=== PATIENT | male | born 1970 | race Hispanic/Latino ===

== ENCOUNTER 2018-02-16 05:55 | Day surgery (SDC) | payer OTHER ==
[2018-02-13 09:22] VITALS: BMI 41.7
[2018-02-16] MEDS ORDERED: Bacitracin Zinc Ointment 30 gm TUBE ONE (06:14)
[2018-02-16] MEDS ORDERED: EPINEPHrine 1 MG/ML AMP ONE (06:14)
[2018-02-16] MEDS ORDERED: Bupivacaine/Epinephrine 0.25% 30 ML VIAL ONE (06:14)
[2018-02-16] MEDS ORDERED: Ciprofloxacin 0.2% Otic ONE (06:14)
[2018-02-16] MEDS ORDERED: Lidocaine 1% w/Epinephrine 1:200K 30 ML VIAL ONE (06:14)
[2018-02-16] MEDS ORDERED: Sodium Chloride 0.9% 10 ML ONE (06:15)
[2018-02-16] MEDS ORDERED: Fentanyl 100 MCG/2 ML VIAL ONE (06:39)
[2018-02-16] MEDS ORDERED: CEFAZOLIN/Water 2 GM/20 ML SYRINGE ONE (07:02)
[2018-02-16] MEDS ORDERED: Midazolam HCl 2 mg/2 ml Vial ONE (07:02)
[2018-02-16] MEDS ORDERED: HYDROcodone/Acetaminophen 5/325 mg Tablet ONE (11:25)
[2018-02-16] MEDS ORDERED: diphenhydrAMINE 50 MG/ML VIAL ONE (16:17)
[2018-02-16] MEDS ORDERED: Ondansetron HCl/PF 4 MG/2 ML Vial ONE (16:17)
[2018-02-16] MEDS ORDERED: Dexamethasone 20 MG/5 ML VIAL ONE (16:17)
[2018-02-16] MEDS ORDERED: Ketorolac Tromethamine 30 MG/ML VIAL ONE (16:17)
[2018-02-16] MEDS ORDERED: PROPOFOL 200 MG/20 ML VIAL ONE (16:17)
[2018-02-16] MEDS ORDERED: Succinylcholine Chloride 20 MG/ML 10 ml SYRINGE FS ONE (16:17)
[2018-02-16] MEDS ORDERED: Lidocaine 1% PF 5 ML VIAL ONE (16:17)
--- NOTE | 2018-02-16 21:13 | EKG ---
Test Reason : PREOP Blood Pressure : / mmHG Vent. Rate : 066 BPM Atrial Rate : 066 BPM P-R Int : 168 ms QRS Dur : 092 ms QT Int : 388 ms P-R-T Axes : 056 002 030 degrees QTc Int : 406 ms Normal sinus rhythm Normal ECG No previous ECGs available Confirmed by YOVANA ARGUETA ([id number]) on 02/16/2018 9:13:16 PM Referred By: VIRAJ Confirmed By:YOVANA ARGUETA
--- NOTE | 2018-02-17 13:47 | OP ---
DATE OF PROCEDURE: 02/16/2018 PREOPERATIVE DIAGNOSIS: Right-sided cholesteatoma. POSTOPERATIVE DIAGNOSIS: Right-sided cholesteatoma. PROCEDURES: 1. Right tympanoplasty mastoidectomy without ossicular chain reconstruction. 2. Mastoid obliteration with bone dust. 3. Microscopic surgical procedure. 4. Facial nerve monitoring for 2 hours. SURGEON: Heath Godoy M.D. ANESTHESIA: General endotracheal. COMPLICATIONS: None. ESTIMATED BLOOD LOSS: 5 mL. SPECIMENS: None. ASSISTANTS: None. DISPOSITION: Stable to recovery room. SUMMARY: Right tympanoplasty mastoidectomy without reconstruction staged with Silastic removed the i ncus head of the malleus, left stapes superstructure and long process of the malleus. Cholesteatoma was throughout the entirety of the attic up to the eustachian tube region and then toward the sinodur al angle. Reconstructed by placing Silastic plastic in the middle ear space x1 piece packed with Gel foam, compressed and packed the attic densely with bone dust and reconstructed the canal wall defect and scutal defect that is with cartilage and fascia. The rest of the middle ear space was in very go od condition. Chorda tympani nerve intact and expect to do well. Of note, we did place the facial n erve electrodes in the contralateral side originally. We would like to do a staged reconstruction an d surveillance for cholesteatoma. However, if he gets good hearing with the staging process, could c onsider MRI follow up. PROCEDURE IN DETAIL: 1. Right tympanoplasty mastoidectomy without ossicular chain reconstruction: After informed consent was obtained, the patient taken to the operating room and placed in the supine position. General en dotracheal anesthetic was administered. Table was rotated 180 degrees. Right ear was injected posta uricular and transcanal 0.25% Marcaine with epinephrine. With the right ear injected then draped and prepped in the usual sterile fashion. Microscope was brought into view and elevated the tympanomeat al flap from 12-6, but did not enter middle ear space. Postauricular incision was made and carried d own and ear reflected forward. The case was very difficult because of the patient's significant obes ity and very short neck stature. Pericranial flap elevated. Fascia and cartilage was harvested and r etractor was placed. Basic cortical mastoid performed and opened the facial recess. Malleus and inc us were removed as described above, leaving long process of the malleus and the stapes superstructure intact. Reconstructed as described above. 2. Mastoid obliteration: With the cartilage placed on the scutum and the reconstruction at that poi nt performed bone dust, which had been harvested during the cortical mastoidectomy to ensure it did n ot have any traces of cholesteatoma, was then packed generously into the attic and compressed onto th e defect in the scutum. 3. Microscopic surgical procedure: Throughout the entire operation microscope was an integral part of procedure used from 2 power to 14 power and high illumination. 4. Facial nerve monitoring for 2 hours: Beginning the operation, EMG electrodes placed in orbicular is oculi and orbicularis nanci, attached to the nerve integrity monitoring system, set at a response t hreshold of 100 microvolts and stimulus 0.8. At no time was there abnormal stimulus and the facial n erve was identified throughout the surgery in the vertical segment of mastoid as well as the middle e ar space. It was intact and unmolested and remained in the bony fallopian canal. The chorda tympani nerve was harvested electively. Postauricular wound was closed with deep 2-0 and 3-0 and Dermabond for the skin. Gelfoam was used to pack the middle ear as well as lateral to the graft and bacitracin ointment was placed lateral to this and a cotton ball applied. Dermabond was placed on the skin with this. The patient tolerat ed the procedure well and was turned over to Anesthesia in a stable condition.
== END 2018-02-16 12:25 | disposition home or self-care (01) ==
LOC: SDC 05:55
PROVIDERS: ATTEND Otolaryngology Otology & Neurotology
PROC: 095 Ear, Nose, Sinus, Destruction (ICD-10-PCS; principal; 2018-02-16)
PROC: 0NR50JZ Replacement of Right Temporal Bone with Synthetic Substitute, Open Approach (ICD-10-PCS; principal; 2018-02-16)
DX: H71.91 Unspecified cholesteatoma, right ear; Z87.891 Personal history of nicotine dependence; Z99.89 Dependence on other enabling machines and devices; G47.30 Sleep apnea, unspecified; E34.9 Endocrine disorder, unspecified
CPT/HCPCS: 93005; 93010; A4216; J0171; J1100; J1200; J1885; J2001; J2250; J2405; J2704; J3010; J3490

== ENCOUNTER 2018-06-10 09:45 | Emergency (ER) | payer OTHER ==
[2018-06-10 10:12] LABS: Bilirubin Negative (Negative); Blood, Urine Negative (Negative); Clarity CLEAR (Clear); Glucose, Urine (Dipstick) 250 mg/dL (Negative); Leukocyte Negative (Negative); Nitrite Negative (Negative); Protein, Urine (Dipstick) Negative (Neg-Trace); Specific Gravity, Urine 1.016 (1.002-1.036); Urobilinogen 0.2 mg/dL (0.2-1.0)
[2018-06-10] MEDS ORDERED: Ondansetron HCl/PF 4 MG/2 ML Vial ONE (10:36)
[2018-06-10] MEDS ORDERED: Ketorolac Tromethamine 30 MG/ML VIAL ONE (10:36)
[2018-06-10 10:54] LABS: #Basophils 0.1 thou/uL (0.0-0.2); #Eosinphils 0.1 thou/uL (0.0-0.7); #Lymphocytes 2.3 thou/uL (1.20-3.40); #Monocytes 0.4 thou/uL (0.11-0.59); #Neutrophils 3.9 thou/uL (1.40-6.50); %Basophils 0.8 % (0.0-1.0); %Eosinophils 2.1 % (0.0-10.0); %Lymphocytes 34.2 % (21.0-51.0); %Monocytes 5.6 % (0.0-10.0); %Neutrophils 57.3 % (42.0-75.0); Hemoglobin 13.9 g/dL (14.0-18.0); Mean Corpuscular HGB CONC 35.3 g/dL (32.0-36.0); Mean Corpuscular Hemoglobin 30.3 pg (27.0-31.0); Mean Corpuscular Volume 85.7 fL (78.0-98.0); Mean Platelet Volume 7.2 fL (7.4-10.4); Platelet Count 178 thou/uL (130-400); RBC Distribution Width 12.2 % (11.5-14.5); Red Blood Cell (RBC) Count 4.61 mill/uL (4.70-6.10); White Blood Cell (WBC) Count 6.8 thou/uL (4.8-10.8)
[2018-06-10 11:18] LABS: ALT (SGPT) 42 U/L (8-55); AST (SGOT) 39 U/L (5-34); Alkaline Phosphatase 76 U/L (40-150); Anion Gap 15 mmol/L (10-20); BUN (Urea Nitrogen) 10 mg/dL (8.9-20.6); Bilirubin, Total 0.6 mg/dL (0.2-1.2); Calc. Creatinine Clearance 0 mL/min (70-130); Carbon Dioxide 22 mmol/L (22-29); Chloride 101 mmol/L (98-107); Estimated GFR-MDRD 63; Globulin 3.4 g/dL (2.4-3.5); Glucose 305 mg/dL (70-105); Lipase 38 U/L (8-78); Potassium 4.2 mmol/L (3.5-5.1); Protein, Total 7.4 g/dL (6.0-8.3); Sodium 134 mmol/L (136-145)
--- NOTE | 2018-06-10 11:46 | CT ---
CT ABDOMEN WITH CONTRAST: CT PELVIS WITH CONTRAST: HISTORY: Right-sided back pain. COMPARISON: None. TECHNIQUE: An abdomen and pelvis CT is performed with IV contrast. Enteric contrast is not administered. Coron al reformatted images are submitted for interpretation. FINDINGS: ABDOMEN: Pleural-based calcification in the right hemidiaphragm. Heart size is normal. No signific ant pericardial fluid. The descending thoracic aorta and abdominal aorta have a normal caliber. No periaortic fat stranding. Contracted gallbladder. Portal vein is patent. Hypoattenuation of the liver due to hepatic steatosis. No solid/enhancing masses in the liver. The spleen, pancreas, and adrenal glands have symmetric and appropriate enhancement. No gastrohepatic, retrocrural, or periportal lymphadenopathy. No mesenteric mass, lymphadenopathy, or free air. There is a trace amount of fluid in the right para colic gutter. Symmetric enhancement of the kidneys. Bilaterally, no obstructive uropathy. Limited evaluation of the alimentary canal by lack of oral contrast. Grossly unremarkable gastric mu cosa. The duodenum and multiple normal caliber small bowel loops are noted. The ileocecal junction is normal. Normal caliber appendix. There is stranding of the pericolonic fat at the level of the d istal cecum/proximal ascending colon. There is a focal area of fat that is central to the area of in flammatory change. The overall degree of inflammation measures 3.4 x 3.9 cm. No evidence of perfora tion. The remainder of the colon is unremarkable. Scattered diverticula, predominantly in the dista l descending colon and proximal sigmoid colon. No associated high grade bowel obstruction. PELVIS: No mass, lymphadenopathy, free air, or free fluid. The urinary bladder is unremarkable. There are no lytic or blastic lesions of the osseous structures. IMPRESSION: 1. Epiploic appendagitis involving the distal cecum/proximal ascending colon. 2. Normal caliber appendix. POS: [facility]
== END 2018-06-10 14:07 | disposition home or self-care (01) ==
LOC: ERS 09:45
DX: K63.89 Other specified diseases of intestine (principal); Z79.899 Other long term (current) drug therapy
CPT/HCPCS: 36415; 74177; 80053; 81003; 83690; 85025; 96361; 96374; 96375; J1885; J2405

== ENCOUNTER 2018-08-19 15:26 | Outpatient (CLI) | payer OTHER | END 2018-08-19 15:27 | disposition home or self-care (01) | LOC: DTY/OP 15:26 | PROVIDERS: ATTEND Family Medicine | DX: E11.9 Type 2 diabetes mellitus without complications (principal); E66.9 Obesity, unspecified; E78.5 Hyperlipidemia, unspecified | CPT/HCPCS: 97802 ==

== ENCOUNTER 2018-09-07 16:00 | Outpatient (CLI) | payer OTHER | END 2018-09-07 16:01 | disposition home or self-care (01) | LOC: SLEEPLAB 16:00 | PROVIDERS: ATTEND Family Medicine | DX: G47.33 Obstructive sleep apnea (adult) (pediatric) (principal); E66.9 Obesity, unspecified; R06.83 Snoring; R53.83 Other fatigue; Z68.41 Body mass index [BMI] 40.0-44.9, adult | CPT/HCPCS: 95806 ==

== ENCOUNTER 2018-09-18 19:30 | Outpatient (CLI) | payer OTHER | END 2018-09-18 19:31 | disposition home or self-care (01) | LOC: SLEEPLAB 19:30 | PROVIDERS: ATTEND Family Medicine | DX: G47.33 Obstructive sleep apnea (adult) (pediatric) (principal); R53.83 Other fatigue; R06.83 Snoring; G47.10 Hypersomnia, unspecified; E66.9 Obesity, unspecified; Z68.41 Body mass index [BMI] 40.0-44.9, adult | CPT/HCPCS: 95811 ==

== ENCOUNTER 2019-04-14 08:57 | Outpatient (CLI) | payer OTHER | END 2019-04-14 08:58 | disposition home or self-care (01) | LOC: DTY/OP 08:57 | PROVIDERS: ATTEND Surgery | DX: E66.01 Morbid (severe) obesity due to excess calories (principal) | CPT/HCPCS: 97802 ==

== ENCOUNTER 2019-06-07 10:46 | Outpatient (CLI) | payer OTHER | END 2019-06-07 10:47 | disposition home or self-care (01) | LOC: DTY/OP 10:46 | PROVIDERS: ATTEND Surgery | DX: E66.01 Morbid (severe) obesity due to excess calories (principal) | CPT/HCPCS: 97802 ==

== ENCOUNTER 2020-12-28 15:39 | Emergency (ER) | payer BC ==
[2020-12-28 20:44] LABS: SARS-CoV-2 PCR by NAA Not Detected (NotDetected)
== END 2020-12-28 16:47 | disposition home or self-care (01) ==
LOC: ERS 15:39
DX: Z20.822 Contact with and (suspected) exposure to COVID-19 (principal); E11.9 Type 2 diabetes mellitus without complications; Z79.84 Long term (current) use of oral hypoglycemic drugs
CPT/HCPCS: 87635; 99283; U0003; U0005

== ENCOUNTER 2023-06-19 14:57 | Outpatient (CLI) | payer BC, OTHER | END 2023-06-19 14:58 | disposition home or self-care (01) | LOC: DTY/OP 14:57 | PROVIDERS: ATTEND Surgery | DX: E66.01 Morbid (severe) obesity due to excess calories (principal) | CPT/HCPCS: 97802 ==

== ENCOUNTER 2023-10-06 07:30 | Inpatient (IN) | payer BC ==
[2023-10-06 08:22] VITALS: BMI 42.3
[2023-10-21] MEDS ORDERED: Dexamethasone 20 MG/5 ML VIAL ONE ×2 (07:00→08:05)
[2023-10-21] MEDS ORDERED: Lidocaine 1% PF 5 ML VIAL ONE ×3 (07:00→08:05)
[2023-10-21] MEDS ORDERED: fentaNYL PF 100 MCG/2 ML SYRINGE ONE ×2 (07:00→07:01)
[2023-10-21] MEDS ORDERED: Ondansetron PF 4 MG/2 ML Vial ONE ×2 (07:00→08:05)
[2023-10-21] MEDS ORDERED: Ketamine In 0.9 % NaCl 50 MG/5 ML SYRINGE ONE (07:01)
[2023-10-21] MEDS ORDERED: PROPOFOL 20 ML ONE (07:01)
[2023-10-21] MEDS ORDERED: Rocuronium Bromide 10 MG/ML (10ML VIAL) ONE ×2 (07:02→08:05)
[2023-10-21] MEDS ORDERED: Propofol 500 MG/50 ML VIAL ONE (07:05)
[2023-10-21] MEDS ORDERED: EPINEPHrine 1 MG/ML VIAL ONE (07:06)
[2023-10-21] MEDS ORDERED: Bupivacaine 0.25% HCL 30 ML VIAL ONE (07:07)
[2023-10-21] MEDS ORDERED: CEFAZOLIN 2 GM VIAL ONE (07:53)
[2023-10-21] MEDS ORDERED: Sodium Chloride 0.9% 100 ML ONE (07:53)
[2023-10-21] MEDS ORDERED: PHENYLEPHRINE-NS 100 MCG/ML 10 ML SYRINGE ONE ×2 (08:05→08:30)
[2023-10-21] MEDS ORDERED: Ketorolac Tromethamine 30 MG/ML VIAL ONE ×2 (08:05→08:52)
[2023-10-21] MEDS ORDERED: PROPOFOL 200 MG/20 ML VIAL ONE (08:05)
[2023-10-21] MEDS ORDERED: FENTANYL 500 MCG/10 ML VIAL 2,000 MCG in Sodium Chloride 0.9% 60 ML IV PRN (08:50)
[2023-10-21] MEDS ORDERED: Naloxone HCl 0.4 mg/ml Vial IV PRN (08:50)
[2023-10-21] MEDS ORDERED: diphenhydrAMINE 50 MG/ML VIAL IM PRN (08:50)
[2023-10-21] MEDS ORDERED: Ondansetron HCl/PF 4 MG/2 ML Vial IVP PRN (08:50)
[2023-10-21] MEDS ORDERED: diphenhydrAMINE 50 MG/ML VIAL IVP PRN ×2 (08:50→09:11)
[2023-10-21] MEDS ORDERED: Promethazine HCl 25 MG/ML VIAL IM PRN ×3 (08:50→09:11)
[2023-10-21] MEDS ORDERED: Ondansetron PF 4 MG/2 ML Vial IVP PRN ×2 (08:50→09:11)
[2023-10-21] MEDS ORDERED: diphenhydrAMINE 25 MG CAP PO PRN (08:50)
[2023-10-21] MEDS ORDERED: SUGAMMADEX SODIUM 200 MG/2 ML VIAL ONE ×2 (08:53→09:01)
[2023-10-21] MEDS ORDERED: Communication Order-Pharmacy FS SCH (09:00)
[2023-10-21] MEDS ORDERED: Dextrose 50% Abboject 50 ML SYRINGE SLOW IVP PRN (09:11)
[2023-10-21] MEDS ORDERED: Hydrocodone-Acetamin 15 ML UDCUP PO PRN (09:11)
[2023-10-21] MEDS ORDERED: Ipratropium/Albuterol 3 ML NEB NEB PRN (09:11)
[2023-10-21] MEDS ORDERED: hydrALAZINE 20 MG/ML VIAL SLOW IVP PRN (09:11)
[2023-10-21] MEDS ORDERED: Dextrose 5% in Water 1,000 ML IV PRN (09:11)
[2023-10-21] MEDS ORDERED: Glucagon 1 MG/ML KIT IM PRN (09:11)
[2023-10-21] MEDS ORDERED: HumaLOG 300 UNITS/3 ML VIAL SC PRN (09:11)
[2023-10-21] MEDS ORDERED: fentaNYL 50 mcg/mL 1 mL Vial ONE ×2 (09:55→10:13)
[2023-10-21] MEDS: Sodium Chloride 0.9% 1,000 ML IV SCH ×2 (12:03→18:53)
[2023-10-21] MEDS: Acetaminophen 650 MG/20.3 ML UDCUP PO PRN ×2 (16:57→22:57)
[2023-10-22] MEDS: Sodium Chloride 0.9% 1,000 ML IV SCH ×2 (00:28→11:28)
[2023-10-22] MEDS ORDERED: Hydrocodone-Acetamin 15 ML UDCUP PO PRN (06:01)
[2023-10-22 06:05] LABS: #Monocytes 0.7 thou/uL (0.11-0.59); #Neutrophils 5.7 thou/uL (1.40-6.50); %Basophils 0.3 % (0.0-1.0); %Eosinophils 0.2 % (0.0-10.0); %Lymphocytes 33.2 % (21.0-51.0); %Monocytes 7.6 % (0.0-10.0); %Neutrophils 58.1 % (42.0-75.0); Hematocrit 40.9 % (42.0-52.0); Hemoglobin 13.7 g/dL (14.0-18.0); Mean Corpuscular HGB CONC 33.5 g/dL (32.0-36.0); Mean Corpuscular Hemoglobin 29.4 pg (27.0-31.0); Mean Corpuscular Volume 87.8 fl (78.0-98.0); Mean Platelet Volume 10.1 fL (7.4-10.4); Platelet Count 216 10x3/uL (130-400); RBC Distribution Width 13.2 % (11.5-14.5); Red Blood Cell (RBC) Count 4.66 mill/uL (4.70-6.10); White Blood Cell (WBC) Count 9.8 10x3/uL (4.8-10.8)
[2023-10-22 06:47] LABS: Anion Gap 12 mmol/L (10-20); BUN (Urea Nitrogen) 13 mg/dL (8.4-25.7); Calc. Creatinine Clearance 149 mL/min (70-130); Calcium 8.6 mg/dL (7.8-10.44); Carbon Dioxide 26 mmol/L (22-29); Chloride 104 mmol/L (98-107); Estimated GFR 78; Glucose 101 mg/dL (70-105); Potassium 3.8 mmol/L (3.5-5.1); Sodium 138 mmol/L (136-145)
[2023-10-22 08:56] VITALS: BP 136/77; TEMP 98.4
[2023-10-22] MEDS ORDERED: Loratadine 10 MG TAB PO SCH (09:00)
[2023-10-22] MEDS ORDERED: Pantoprazole 40 MG VIAL IVP SCH (09:00)
[2023-10-22] MEDS ORDERED: Cetirizine HCl 10 MG TAB PO SCH (09:00)
== END 2023-10-22 11:49 | disposition home or self-care (01) | DRG 621 ==
LOC: SURG A 10-21 05:59 → SURG B 10-21 11:22
PROVIDERS: ADMIT Surgery; ATTEND Surgery
PROC: 0DB64Z3 Excision of Stomach, Percutaneous Endoscopic Approach, Vertical (ICD-10-PCS; principal; 2023-10-21)
PROC: 8E0W3CZ Robotic Assisted Procedure of Trunk Region, Percutaneous Approach (ICD-10-PCS; 2023-10-21)
DX: E66.01 Morbid (severe) obesity due to excess calories (principal); Z68.41 Body mass index [BMI] 40.0-44.9, adult; E11.9 Type 2 diabetes mellitus without complications; G47.33 Obstructive sleep apnea (adult) (pediatric); E78.5 Hyperlipidemia, unspecified; Z98.890 Other specified postprocedural states
CPT/HCPCS: 36415; 36416; 80048; 85025; 88307; C9113; J0171; J1100; J1650; J1885; J2405; J2704; J3010; J3490; J7050; S0020

== ENCOUNTER 2023-10-06 07:43 | Outpatient (CLI) | payer BC ==
[2023-10-06 09:03] LABS: #Basophils 0.1 10x3/uL (0.0-0.2); #Eosinphils 0.2 10x3/uL (0.0-0.5); #Monocytes 0.4 10x3/uL (0.0-1.1); #Neutrophils 3.4 10x3/uL (1.5-8.4); %Basophils 0.9 % (0.0-2.0); %Eosinophils 2.7 % (0.0-6.0); %Lymphocytes 39.8 % (18.0-47.0); %Monocytes 5.9 % (0.0-10.0); %Neutrophils 50.6 % (40.0-75.0); Hematocrit 46.2 % (38.8-50.0); Hemoglobin 15.5 g/dL (13.5-17.5); Mean Corpuscular HGB CONC 33.5 g/dL (32.0-36.0); Mean Corpuscular Hemoglobin 28.5 pg (27.0-33.0); Mean Corpuscular Volume 84.9 fl (81.2-95.1); Mean Platelet Volume 9.9 fl (7.4-10.4); Platelet Count 238 10x3/uL (150-450); Red Blood Cell (RBC) Count 5.44 10x6/uL (4.32-5.72); White Blood Cell (WBC) Count 6.8 10x3/uL (3.5-10.5)
[2023-10-06 09:42] LABS: Anion Gap 16 mmol/L (10-20); BUN (Urea Nitrogen) 13 mg/dL (8.4-25.7); Calc. Creatinine Clearance 0 mL/min (70-130); Carbon Dioxide 24 mmol/L (22-29); Chloride 103 mmol/L (98-107); Estimated GFR 75; Glucose 126 mg/dL (70-105); Potassium 4.4 mmol/L (3.5-5.1); Sodium 139 mmol/L (136-145)
== END 2023-10-06 07:44 | disposition home or self-care (01) ==
LOC: LABBT 07:43
PROVIDERS: ATTEND Surgery
DX: Z01.818 Encounter for other preprocedural examination (principal); E66.01 Morbid (severe) obesity due to excess calories
CPT/HCPCS: 80048; 85025; 93005; 93010